=== PATIENT | male | born 1995 | race Two or more races ===

== ENCOUNTER 2019-02-20 08:45 | Emergency (ER) | payer MEDICAID ==
[~2019-02-20] VITALS: Ht 170.2 cm; Wt 93.4 kg
--- NOTE | 2019-02-20 09:16 | NUR ---
CAME IN FOR L FLANK PAIN, DARK COLORED URINE, "I WOKE UP IN PAIN AROUND 5AM" TO ER BED 11, HOOKED TO MONITOR, DR RODRIGUEZ AT BEDSIDE
--- NOTE | 2019-02-20 09:30 | NUR ---
urine sample sent to lab
[2019-02-20 09:39] LABS: APPEARANCE,URINE Cloudy (CLEAR); BILIRUBIN,URINE SMALL (NEGATIVE); BLOOD, URINE Moderate Ery/uL (NEGATIVE); COLOR,URINE Yellow (YELLOW); KETONES,URINE Negative (NEGATIVE); LEUKOCYTE ESTERASE ,URINE Negative (NEGATIVE); NITRITE, URINE Negative (NEGATIVE); PH,URINE 5.5 (5.0-8.0); PROTEIN,URINE 30 mg/dl (NEGATIVE); UGLUCOSE Negative (NEGATIVE)
[2019-02-20 09:56] LABS: BACTERIA,URINE Few /HPF (None Seen); MUCUS,URINE Few /LPF (None Seen); RBC,URINE 51-80 /HPF (0-2)
--- NOTE | 2019-02-20 10:07 | NUR ---
Patient discharged to home in stable condition. Written and verbal after care instructions given. Patient verbalizes understanding of instruction.
[2019-02-20 10:14] VITALS: BP 121/84
== END 2019-02-20 10:12 | disposition home or self-care (01) ==
LOC: ER 08:45
DX: R10.32 Left lower quadrant pain (principal); R10.12 Left upper quadrant pain; R31.9 Hematuria, unspecified; F90.9 Attention-deficit hyperactivity disorder, unspecified type
CPT/HCPCS: 81000-TC